=== PATIENT | male | born 1975 | race Caucasian/White ===

== ENCOUNTER 2017-04-14 11:30 | Emergency (ER) | payer BC ==
[2017-04-14 11:40] VITALS: BP 152/91
[2017-04-14] MEDS ORDERED: IBUPROFEN 400 MG TABLET PO ONE (12:40)
[2017-04-14] MEDS ORDERED: IBUPROFEN 400 MG TABLET ONE (12:44)
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
== END 2017-04-14 12:45 | disposition home or self-care (01) ==
LOC: ER 11:30
PROC: 0JQH0ZZ Repair Left Lower Arm Subcutaneous Tissue and Fascia, Open Approach (ICD-10-PCS; principal; 2017-04-14)
PROC: 2W39X1Z Immobilization of Left Upper Extremity using Splint (ICD-10-PCS; 2017-04-14)
DX: S51.022A Laceration with foreign body of left elbow, initial encounter (principal); F17.200 Nicotine dependence, unspecified, uncomplicated; V87.8XXA Person injured in other specified noncollision transport accidents involving motor vehicle (traffic), initial encounter; Y93.55 Activity, bike riding; Y92.410 Unspecified street and highway as the place of occurrence of the external cause